=== PATIENT | male | born 1935 | race Caucasian/White ===

== ENCOUNTER 2017-11-24 19:06 | Inpatient (IN) ==
[2017-11-24] MEDS ORDERED: ALUM/MAG/SIMETH/LIDO VISC 1:1 30 ML BOTTLE PO ONE (19:42)
[2017-11-24] MEDS ORDERED: ALUM/MAG/SIMETH/LIDO VISC 1:1 30 ML BOTTLE PO STA (19:47)
[2017-11-24 19:48] LABS: Basophils # 0.1 10*3/uL (0.0-0.2); Basophils % 0.7 % (0.0-0.8); Eosinophils # 0.2 10*3/uL (0.0-0.87); Hematocrit 45.7 VOL% (42.0-52.0); Hemoglobin 15.3 GM/DL (14.0-18.0); Immature Granulocytes % 0.2 %; Immature Granulocytes Absolute 0.02 #; Lymphocytes # 2.3 10*3/uL (1.4-4.0); Lymphocytes % 25.6 % (21.2-54.2); Mean Corpuscular HGB Conc 33.5 GM/DL (32-36); Mean Corpuscular Hemoglobin 32 PG (27-34); Mean Corpuscular Volume 96.4 FL (87-102); Mean Platelet Volume 9.7 FL (9.6-12.0); Monocytes # 0.6 10*3/uL (0.11-0.8); Monocytes % 7.3 % (1.7-12.7); Neutrophils # 5.7 10*3/uL (1.4-7.4); Neutrophils % 64.2 % (38.7-73.9); Platelet Count 222 T/CUMM (130-400); Red Blood Count 4.74 MC/CUMM (3.8-5.5); Red Cell Distribution Width 13.3 % (9.3-17.3); White Blood Count 8.8 T/CUMM (4-12)
[2017-11-24 19:59] LABS: PT Patient Result 10.6 SECS
[2017-11-24 20:05] LABS: Alanine Aminotransferase 24 U/L (16-61); Albumin 3.1 G/DL (3.4-5.0); Alkaline Phosphatase 61 U/L (45-117); Amylase 60 U/L (25-115); Aspartate Amino Transferase 22 U/L (0-37); Blood Urea Nitrogen 21 MG/DL (7-18); Calcium 8.9 MG/DL (8.5-10.1); Glucose 103 MG/DL (74-106); Osmolality,Calculated 283.3 MOS/KG (273-304); Potassium 4.2 MMOL/L (3.5-5.1); Sodium 141 MMOL/L (136-145); Total Protein 6.6 G/DL (6.4-8.3); Troponin I Only < 0.015 NG/ML (0.00-0.045)
[2017-11-24] MEDS ORDERED: MORPHINE 4 MG/1 ML VIAL IV STA (20:18)
[2017-11-24] MEDS ORDERED: ONDANSETRON 4 MG/2 ML VIAL IV STA (20:18)
[2017-11-24] MEDS ORDERED: ONDANSETRON 4 MG/2 ML VIAL IV PRN (21:39)
[2017-11-24] MEDS ORDERED: BISACODYL 5 MG TABLET PO PRN (21:39)
[2017-11-24] MEDS ORDERED: ACETAMINOPHEN 325 MG TABLET PO PRN (21:39)
[2017-11-25] MEDS: PANTOPRAZOLE 40 MG TABLET PO SCH (09:58)
[2017-11-25] MEDS: LEVOFLOXACIN INJ 500 MG in PREMIX 1 EACH IV SCH (11:07)
[2017-11-25 18:19] LABS: INR 1.1; PT Patient Result 11.2 SECS
[2017-11-25] MEDS: TAMSULOSIN 0.4 MG CAPSULE PO SCH (20:42)
[2017-11-26] MEDS: GEMFIBROZIL 600 MG TABLET PO SCH ×2 (07:30→16:12)
[2017-11-26] MEDS ORDERED: TISSUE ADHESIVE 1 EACH APPLICATOR TOP ONE (08:07)
[2017-11-26] MEDS ORDERED: BUPIVACAINE MPF 0.25% 30 ML VIAL ONE (08:07)
[2017-11-26] MEDS ORDERED: LIDOCAINE 1%/EPI INJ 20 ML VIAL ONE (08:07)
[2017-11-26] MEDS: LACTATED RINGERS 1,000 ML IV SCH ×3 (08:30→12:14)
[2017-11-26] MEDS: TAMSULOSIN 0.4 MG CAPSULE PO SCH ×2 (09:00→20:31)
[2017-11-26] MEDS: PANTOPRAZOLE 40 MG TABLET PO SCH (09:00)
[2017-11-26] MEDS ORDERED: SUGAMMADEX 200 MG/2 ML VIAL IV ONE (09:52)
[2017-11-26 11:13] LABS: ABG Base Excess -0.4 MMOL/L (-2.5-2.5); ABG HCO3 24.1 MMOL/L (20-26); ABG Oxygen Saturation 98.1 % (95-100); ABG PCO2 41.1 MM HG (35-48); ABG PH 7.386 (7.35-7.45); ABG TCO2 20.9 MMOL/L (23-27)
[2017-11-26] MEDS ORDERED: ONDANSETRON 4 MG/2 ML VIAL ONE (11:35)
[2017-11-26] MEDS ORDERED: SEVOFLURANE 1 UNIT/15 MINUTE INH ONE (11:35)
[2017-11-26] MEDS ORDERED: PHENYLEPHRINE 10 MG/1 ML VIAL IV ONE (11:35)
[2017-11-26] MEDS ORDERED: fentaNYL 100 MCG/2 ML VIAL ONE (11:35)
[2017-11-26] MEDS ORDERED: PROPOFOL 200 MG/20 ML VIAL IV ONE (11:35)
[2017-11-26] MEDS ORDERED: ALBUMIN 5% 12.5 GM/250 ML VIAL IV ONE (11:35)
[2017-11-26] MEDS ORDERED: SODIUM CHLORIDE 0.9% 250 ML IV ONE (11:36)
[2017-11-26] MEDS ORDERED: PHENYLEPHRINE 1 MG/10 ML SYRINGE IV ONE (11:36)
[2017-11-26] MEDS ORDERED: ROCURONIUM 100 MG/10 ML VIAL IV ONE (11:36)
[2017-11-26] MEDS: LEVOFLOXACIN INJ 500 MG in PREMIX 1 EACH IV SCH (11:45)
[2017-11-26] MEDS: SODIUM CHLORIDE 0.9% 1,000 ML IV SCH ×2 (11:45→22:24)
[2017-11-26] MEDS: metroNIDAZOLE INJ 500 MG in PREMIX 1 EACH IV SCH ×2 (12:46→18:06)
[2017-11-26] MEDS: HYDROmorphone 2 MG/1 ML VIAL IV PRN ×2 (13:59→22:42)
[2017-11-27] MEDS: metroNIDAZOLE INJ 500 MG in PREMIX 1 EACH IV SCH ×3 (01:55→18:43)
[2017-11-27] MEDS: SODIUM CHLORIDE 0.9% 1,000 ML IV SCH ×3 (02:53→13:56)
[2017-11-27] MEDS: GEMFIBROZIL 600 MG TABLET PO SCH ×2 (09:00→17:06)
[2017-11-27] MEDS: PANTOPRAZOLE 40 MG TABLET PO SCH (09:00)
[2017-11-27] MEDS: TAMSULOSIN 0.4 MG CAPSULE PO SCH ×2 (09:00→20:05)
[2017-11-27] MEDS: ASPIRIN EC 81 MG TABLET PO SCH (09:00)
[2017-11-27 10:23] LABS: Basophils % 0.2 % (0.0-0.8); Eosinophils % 0.1 % (0.00-10.9); Hematocrit 43.6 VOL% (42.0-52.0); Hemoglobin 14.7 GM/DL (14.0-18.0); Immature Granulocytes % 0.5 %; Immature Granulocytes Absolute 0.06 #; Lymphocytes % 7.8 % (21.2-54.2); Mean Corpuscular HGB Conc 33.7 GM/DL (32-36); Mean Corpuscular Hemoglobin 33 PG (27-34); Mean Corpuscular Volume 96.9 FL (87-102); Mean Platelet Volume 9.9 FL (9.6-12.0); Monocytes # 0.6 10*3/uL (0.11-0.8); Monocytes % 4.9 % (1.7-12.7); Neutrophils # 10.6 10*3/uL (1.4-7.4); Neutrophils % 86.5 % (38.7-73.9); Platelet Count 155 T/CUMM (130-400); Red Cell Distribution Width 13.3 % (9.3-17.3)
[2017-11-27 10:27] LABS: White Blood Count 12.2 T/CUMM (4-12)
[2017-11-27] MEDS: LEVOFLOXACIN INJ 500 MG in PREMIX 1 EACH IV SCH (12:00)
[2017-11-28] MEDS: metroNIDAZOLE INJ 500 MG in PREMIX 1 EACH IV SCH ×2 (01:51→10:49)
[2017-11-28 07:16] LABS: Basophils % 0.2 % (0.0-0.8); Eosinophils # 0.1 10*3/uL (0.0-0.87); Eosinophils % 1.6 % (0.00-10.9); Hematocrit 41.3 VOL% (42.0-52.0); Hemoglobin 13.8 GM/DL (14.0-18.0); Immature Granulocytes % 0.4 %; Immature Granulocytes Absolute 0.03 #; Lymphocytes # 1.6 10*3/uL (1.4-4.0); Lymphocytes % 19.1 % (21.2-54.2); Mean Corpuscular HGB Conc 33.4 GM/DL (32-36); Mean Corpuscular Hemoglobin 32 PG (27-34); Mean Corpuscular Volume 95.6 FL (87-102); Mean Platelet Volume 10.9 FL (9.6-12.0); Monocytes # 0.7 10*3/uL (0.11-0.8); Monocytes % 7.7 % (1.7-12.7); Platelet Count 172 T/CUMM (130-400); Red Blood Count 4.32 MC/CUMM (3.8-5.5); Red Cell Distribution Width 13.1 % (9.3-17.3); White Blood Count 8.5 T/CUMM (4-12)
[2017-11-28] MEDS: ASPIRIN EC 81 MG TABLET PO SCH (09:38)
[2017-11-28] MEDS: GEMFIBROZIL 600 MG TABLET PO SCH (09:38)
[2017-11-28] MEDS: TAMSULOSIN 0.4 MG CAPSULE PO SCH (09:38)
[2017-11-28] MEDS: PANTOPRAZOLE 40 MG TABLET PO SCH (09:38)
[2017-11-28 11:11] VITALS: BP 105/64
[2017-11-28] MEDS: LEVOFLOXACIN INJ 500 MG in PREMIX 1 EACH IV SCH (11:51)
[2017-11-28] MEDS ORDERED: BISACODYL 10 MG SUPP RECTAL ONE (15:15)
== END 2017-11-28 15:55 | disposition home or self-care (01) | DRG 419 ==
LOC: EDUNIT# → N.ED 19:06 → N.EDINP 21:39 → N.3E 22:17 → N.ICU 11-26 11:17 → N.3E 11-27 14:25
PROVIDERS: ADMIT Surgery; ATTEND Surgery
PROC: LAPCHOL (2017-11-26 08:26)